=== PATIENT | female | born 1950 | race Caucasian/White ===

== ENCOUNTER → 2020-01-29 | Outpatient (CLI) | payer MEDICARE, SELFPAY ==
--- NOTE | 2020-01-29 15:40 | MRI_ITS ---
STUDY: MRI LEFT KNEE REASON FOR EXAM: Female, 69 years old. Pain. Strain. TECHNIQUE: Standardized fat and water weighted pulse sequences were obtained in all 3 orthogonal planes. COMPARISON: None. FINDINGS: Medial meniscus tear of the posterior horn, series 4 images through . Normal hyaline cartilage of the medial femorotibial compartment. There is reactive marrow edema of the medial tibial plateau. There is a partial sprain of the MCL with interstitial and periligamentous edema. Normal distal semimembranosus, gracilis and semitendinosus tendons. Normal lateral meniscus. Normal hyaline cartilage of the lateral femorotibial compartment. Normal lateral femoral condyle and tibial plateau. Normal proximal tibiofibular articulation. Normal lateral collateral (fibular) ligament. Normal popliteus tendon. Normal biceps femoris tendon. Normal anterior cruciate ligament (ACL). Normal posterior cruciate ligament (PCL). There is arthrosis of the patellofemoral articulation. There is diffuse, greater than 50% thickness articular cartilage loss of the patellofemoral compartment. Normal medial and lateral patellar retinaculum. Normal quadriceps tendon. Normal patellar tendon. Normal Hoffa''s fat pad. There is a moderate volume joint effusion. The soft tissues are unremarkable. The otherwise visualized osseous structures are unremarkable. MRI/Lower Ext Joint Only (Routine) IMPRESSION: Medial meniscus tear. Medial collateral ligament sprain. Bone bruise or stress injury of the medial tibial plateau. Patellofemoral degenerative change. Joint effusion. Electronically Signed: Sean Newton MD at 17:52 EDT , Service support ,
== END | disposition home or self-care (01) ==
LOC: MRI 15:36
PROVIDERS: PCP Internal Medicine; Referring Provider Physician Assistant; Visit Provider Physician Assistant
DX: S83.8X2A Sprain of other specified parts of left knee, initial encounter (principal); M17.11 Unilateral primary osteoarthritis, right knee
CPT/HCPCS: 73721

== ENCOUNTER → 2020-02-23 | Outpatient (CLI) | payer MEDICARE, SELFPAY ==
[2020-02-23 15:14] LABS: AST(SGOT) 26 U/L (15-37); Alanine Aminotransfer ALT/SGPT 54 U/L (13-56); Albumin, Serum 3.8 g/dL (3.2-5.0); Alkaline Phosphatase 105 U/L (45-117); Globulin 3.2 g/dL (2.2-4.2)
== END | disposition home or self-care (01) ==
LOC: LAB 14:05
PROVIDERS: PCP Family Medicine; Referring Provider Podiatrist Foot & Ankle Surgery; Visit Provider Podiatrist Foot & Ankle Surgery
DX: B35.1 Tinea unguium (principal)
CPT/HCPCS: 36415; 80076

== ENCOUNTER 2020-11-09 20:08 | Emergency (ER) | payer MEDICARE, OTHER, SELFPAY ==
[2020-11-09 20:09] VITALS: BP 140/79; PULSE 77; RESP 16; TEMP 36; O2SAT 99; BMI 23.1
--- NOTE | 2020-11-09 20:35 | ED.DCSUM_ITS ---
- ER Visit Summary Date of Service: 11/09/20 Chief Complaint: [Painful lesions to back] History of Present Illness: The patient is a 70 F [C department today with complaint of 2 lesions to the right lower back that she noticed few hours ago. Patient states that she was sitting in her office working when she felt like she needed to stretch her back and felt a soreness. Patient's looked at her skin and noted these lesions. Patient became concerned that these may have been spider bites and presents to the ER for evaluation. Patient has not had shingles before and she states that she does get the shingles vaccine. Patient denies recent illness such as fever or cough or COVID-19 exposures.] Physical Examination: [HEENT-PERRLA, EOMI. Cranial nerves II through XII grossly intact. TMs clear. Mucous membranes moist. No adenopathy. Cardiovascular-regular rate and rhythm without murmur or ectopy Lungs-clear to auscultation, chest wall stable without crepitus or subcu emphysema Abdomen-normoactive bowel sounds, soft, nontender, no rebound or rigidity, no peritoneal signs. Back exam-patient does have two 1 cm lesions approximately 5 cm apart that are slightly raised and erythematous with central excoriation noted. No vesicles noted. Areas are minimally tender to palpation. Extremities-intact ?4, normal range of motion, normal pulses, atraumatic] Test Results: [None indicated] Emergency Department Course and Treatment: [Discussed with patient that etiology of these lesions is unclear as I suspect it could be insect bites versus early start of shingles. I do not feel any antibiotics are indicated at this time she is in agreement. I recommended Benadryl for itching. Patient will follow up with her primary care physician in 3 to 5 days for repeat exam.] Treatment Plan: [To follow-up with primary care physician in 3 to 5 days. Patient to return if increased redness, swelling, pain, or condition should worsen anyway.] Disposition: [Discharged home in stable condition] Impression: [Insect bites to back] This note was generated with [employer] dictation software. It may contain incorrect words, spelling, and punctuation that were not noted in review of the chart prior to signing ED Disposition - Plan for ED Patient: Referrals: Charles Multani MD [Primary Care Provider] -
--- NOTE | 2020-11-09 20:38 | ED.DEP ---
ED Disposition - Plan for ED Patient: Instructions: ED Insect Sting, Local Reaction Referrals: Charles Multani MD [Primary Care Provider] - 3-5 Days
== END 2020-11-09 21:09 | disposition home or self-care (01) ==
LOC: ED 20:59
PROVIDERS: Emergency Provider Emergency Medicine; PCP Family Medicine
DX: S30.860A Insect bite (nonvenomous) of lower back and pelvis, initial encounter (principal); W57.XXXA Bitten or stung by nonvenomous insect and other nonvenomous arthropods, initial encounter; Y93.89 Activity, other specified; Y92.008 Other place in unspecified non-institutional (private) residence as the place of occurrence of the external cause; Y99.8 Other external cause status
CPT/HCPCS: 99282

== ENCOUNTER 2020-12-21 21:13 | Outpatient (RCR) | payer MEDICARE, OTHER, SELFPAY ==
[2020-12-21] MEDS: COVID-19 VACC, MRNA(PFIZER)/PF 30 MCG/0.3 ML SYRINGE IM (16:38)
[2021-01-11] MEDS: COVID-19 VACC, MRNA(PFIZER)/PF 30 MCG/0.3 ML SYRINGE IM (14:56)
== END 2021-03-22 23:59 ==
LOC: IMMUN 21:13
PROVIDERS: PCP Family Medicine; Visit Provider Family Medicine
DX: Z23 Encounter for immunization (principal)
CPT/HCPCS: 0001A; 0002A; 91300

== ENCOUNTER → 2021-03-02 13:14 | Outpatient (CLI) | payer MEDICARE, OTHER, SELFPAY ==
--- NOTE | 2021-03-02 13:19 | EKG12_ITS ---
Test Reason : PRE-OP Blood Pressure : / mmHG Vent. Rate : 079 BPM Atrial Rate : 079 BPM P-R Int : 186 ms QRS Dur : 078 ms QT Int : 396 ms P-R-T Axes : 053 -39 024 degrees QTc Int : 454 ms Normal sinus rhythm Left axis deviation Inferior infarct , age undetermined Poor R wave progression Abnormal ECG Confirmed by RICHARD BETANCOURT, REGINO ([id number]), newspaper managing editor THU LAIRD ([id number]) on 03/04/2021 11:06:09 AM Referred By: JENNIFER KNAPP Confirmed By:REGINO RAMOS MD
[2021-03-02 14:07] LABS: Hematocrit 40.9 % (37-47); Hemoglobin 13.7 g/dL (12.0-15.0); Mean Corp Hgb Conc 33.5 g/dL (32-36); Mean Corpuscular Hgb 29.9 pg (27.0-32.0); Mean Corpuscular Volume 89.3 fL (81-99); Mean Platelet Vol. 9.2 fl (6.2-12.0); Platelet Count 226 K/mm3 (150-450); RBC Distribution Width CV 11.9 % (11.6-14.6); RBC Distribution Width SD 38.5 fl (35.1-43.9); Red Blood Count 4.58 M/mm3 (4.2-5.4)
[2021-03-02 14:38] LABS: ALB/GLOB Ratio 1.3 RATIO (0.9-2.4); AST(SGOT) 20 U/L (15-37); Alanine Aminotransfer ALT/SGPT 31 U/L (13-56); Albumin, Serum 3.9 g/dL (3.2-5.0); Alkaline Phosphatase 103 U/L (45-117); Anion Gap 5 (5-15); BUN 24 mg/dL (7-18); BUN/Creat Ratio 29.5 RATIO (10-20); Calcium,Total 9.6 mg/dL (8.5-10.1); Chloride 108 mmol/L (98-107); Creatinine, Serum 0.81 mg/dL (0.55-1.02); EST Glomerular Filtration Rate 74 mL/min (>60); Est Glom Filt Rate - Afr Amer 90 mL/min (>60); Glucose 94 mg/dL (74-106); Potassium 4.4 mmol/L (3.5-5.1); Protein, Total 6.9 g/dL (6.4-8.2); Sodium Level 141 mmol/L (136-145)
== END ==
PROVIDERS: PCP Family Medicine
DX: Z01.812 Encounter for preprocedural laboratory examination (principal)
CPT/HCPCS: 36415; 80053; 85027; 93005

== ENCOUNTER 2023-06-29 06:01 | Day surgery (SDC) | payer MEDICARE, OTHER, SELFPAY ==
[2023-06-29 06:26] VITALS: BP 119/84; PULSE 69; RESP 16; TEMP 36.1; O2SAT 100; BMI 27.8
[2023-06-29] MEDS: Lactated Ringers 1,000 ML 15 ML IV (06:29)
--- NOTE | 2023-06-29 07:19 | PCM.HP.BLA ---
History and Physical Date of Admission: 06/29/23 Pt is examined and there are no changes to exam and evaluation of 06/21/23. The procedure was reviewed with the patient including informed consent with her present. She is marked in the pre-op holding area. Assessment & Plan Assessment/Plan (1) Vision decreased: (2) Dermatochalasis of both eyelids: PLAN: Plan Pt for upper blepharoplasty.
[2023-06-29] MEDS: Erythromycin Ophthalmic (NSY) 1 GM OPTH.TUBE 1 APPLIC OPHTHALMIC (08:05)
[2023-06-29] MEDS: Epinephrine (1 mg/ml) 1 MG/ML VIAL ×3 (08:13→08:43)
[2023-06-29] MEDS: Lidocaine 1% /Epi 1:100 (20ml) 20 ML Vial (09:00)
--- NOTE | 2023-06-29 09:19 | DCINST_ITS ---
Discharge Instructions Diet Discharge Diet: No restrictions Activity Lifting Restrictions: No Lifting or exersion Additional Activity Instructions:: Keep your back elevated (recliner position) when resting. Dressing / Incision Additional Dressing/Incision Instructions:: Maintain cold compresses for the remainder of the day as much as possible today. Follow the instructions given in the office. Follow Up Care Please Follow Up With: Lydia Resendiz MD When: As scheduled Test Results: Test results from this visit will be discussed in further detail at your follow- up appointment, if applicable. Discharge Plan Admission Attending Provider: Lydia Resendiz Primary Care Provider: Charles Multani Discharge Orders/Prescriptions Prescriptions: No Action gabapentin 100 mg capsule 100 mg PO DAILY baclofen 10 mg tablet 10 mg PO QHS glucosamine-chondroitin [Osteo Bi-Flex] 250-200 mg tablet 2 tab PO DAILY Rx Instructions: give after food/meal Zyrtec 10 mg capsule 10 mg PO DAILY PRN (Reason: allergy symptoms) hydroxycut 1 tab PO 1XD Patient Comments: weight loss, calorie burn will red 1 tab PO 1XD biotine forte 1 tab PO 2XD Dynamic Brain PO 1XD Nuvomed Sleep tight 1 tab PO HS erythromycin 5 mg/gram (0.5 %) ointment 1 applic ophthalmic (eye) DAILY Qty: 3.5 0RF Rx Instructions: Instill in eyes at night-time. Apply to incisions 1x a day. multivitamin [Daily Multiple] 1 EACH tablet 1 ea PO DAILY lansoprazole [Prevacid] 15 MG capsule 15 mg PO DAILY [id number] [krill oil] 1 EACH capsule 1 ea PO DAILY albuterol sulfate [Ventolin HFA] 1 INHALER inhaler 1 - 2 puff inhalation Q4H PRN PRN (Reason: Sob &/Or Wheezing) Referrals / Follow Up: Charles Multani MD [Primary Care Provider] - Disposition Disposition (needs filled in before D/C Order can be placed): Home, Self Care
[2023-06-29 09:24] VITALS: BP 119/84; BP 137/82; PULSE 66; RESP 16; TEMP 36.3; O2SAT 100
--- NOTE | 2023-06-29 09:27 | PCM.OPRPT ---
Problems Associated Problem List Diagnoses (1) Vision decreased: (2) Dermatochalasis of both eyelids: Report of Operation Date of Procedure: 06/29/23 Pre-Operative Diagnosis: Bilateral upper eyelid dermatochalasis, vision decreased Post-Operative Diagnosis: Same Surgery/Procedure Performed:: Bilateral upper blepharoplasty Surgeon: Lydia Resendiz Type of Anesthesia: General Drains: none Estimated Blood Loss (mL): minimal Description of Procedure: The patient was brought to the operating room and placed under general anesthesia in the supine position. Care is taken to pad all pressure points, apply a warming blanket, and sequential compression stockings. The face is prepped and draped in the usual sterile fashion. Tetracaine drops were placed in the eyes and corneal manuel with lubrication are placed bilaterally. The patient had been marked in the preop holding area prior to surgery. We initially began with making the incisions along the designated lines. A full-thickness skin excision of this tissue was then performed. Hemostasis is controlled with bipolar cautery. If thin sliver of orbicularis oculi is then taken and meticulous hemostasis again assured with bipolar cautery. Following this, the incision is tacked together with fast-absorbing gut suture. Cool compresses were placed on the eye and we directed our attention to the opposite side where the identical procedure was performed. Following this, a 5-0 Prolene suture was used to approximate skin edges in a subcuticular fashion and the sutures carried over to the opposite side. The suture ends are anchored in place with Mastisol and Steri-Strips. The corneal manuel are then removed. Cool compresses have been maintained on the eyes throughout the procedure. Erythromycin ophthalmic ointment is placed on the incision. Cool compresses are replaced. She was taken to the recovery room in an awakening in stable condition. Needle and sponge counts are correct. Complications none Admit VTE Documentation VTE Mechan Device Prophylaxis: SCD's
[2023-06-29 09:30] VITALS: BP 119/84; BP 135/79; PULSE 66; RESP 16; O2SAT 100
[2023-06-29 09:45] VITALS: BP 119/84; BP 149/91; PULSE 65; RESP 16; O2SAT 99
[2023-06-29 09:58] VITALS: BP 119/84; BP 155/90; PULSE 65; RESP 16; TEMP 37.1; O2SAT 100
[2023-06-29 10:38] VITALS: BP 119/84
== END 2023-06-29 11:30 | disposition home or self-care (01) ==
LOC: SDC 06:01 → AC 06:02
PROVIDERS: PCP Family Medicine; Referring Provider Plastic Surgery; Visit Provider Plastic Surgery
PROC: (CPT 15823; principal; 2023-06-29 07:20)
DX: H02.831 Dermatochalasis of right upper eyelid (principal); H02.834 Dermatochalasis of left upper eyelid; H54.7 Unspecified visual loss; K21.9 Gastro-esophageal reflux disease without esophagitis; Z78.0 Asymptomatic menopausal state; Z79.899 Other long term (current) drug therapy
CPT/HCPCS: 15823; 00103; J7120; J2405

== ENCOUNTER 2024-06-20 20:04 | Emergency (ER) | payer MEDICARE, OTHER, SELFPAY ==
[2024-06-20 20:05] VITALS: BP 155/90; PULSE 61; RESP 18; TEMP 36.6; O2SAT 100; BMI 29.1
[2024-06-20 20:39] LABS: Absolute Lymphocyte Count 1.71 X10^3/uL (0.83-4.51); Absolute Neutrophil Count 11.4 X10^3/uL (2.0-7.7); Basophil# 0.04 X10^3/uL; Basophil% 0.3 % (0-1); Eosinophil# 0.02 X10^3/uL; Eosinophils% 0.1 % (0-5); Hematocrit 42.1 % (37-47); Hemoglobin 14.3 g/dL (12.0-15.0); Lymphocyte # 1.71 X10^3/ul (0.83-4.51); Lymphocyte % 12.5 % (19-41); Mean Corpuscular Hgb 29.6 pg (27.0-32.0); Mean Corpuscular Volume 87.2 fL (81-99); Mean Platelet Vol. 9.4 fl (6.2-12.0); Monocyte# 0.51 X10^3/uL; Monocyte% 3.7 % (0-10); NRBC Flagged by Analyzer 0 % (0-5); Neutrophil # 11.36 X10^3/uL (2.7-7.7); Neutrophil % 82.9 % (47-70); Platelet Count 275 K/mm3 (150-450); RBC Distribution Width CV 11.7 % (11.6-14.6); RBC Distribution Width SD 37.4 fl (35.1-43.9); Red Blood Count 4.83 M/mm3 (4.2-5.4); White Blood Count 13.7 K/mm3 (4.4-11.0)
--- NOTE | 2024-06-20 20:41 | CT_ITS ---
STUDY: CT ABDOMEN AND PELVIS WITH CONTRAST REASON FOR EXAM: Female, 74 years old. LLQ abd pain, vomiting RADIATION DOSAGE (If Supplied By Facility): CTDIvol = ( 12.05 ) mGy, DLP = ( 643.98 ) mGycm TECHNIQUE: Transaxial images were obtained from the dome of the diaphragm to the symphysis pubis without oral contrast. IV 100mL Isovue-370 was administered. Sagittal and coronal images were reconstructed. Individualized dose optimization techniques were used for this CT. COMPARISON: None. FINDINGS: The visualized lung bases are unremarkable. The visualized portions of the heart are within normal limits. Normal liver. Normal gallbladder and extrahepatic biliary system. Normal spleen. Normal pancreas. Normal bilateral adrenal glands. Normal right kidney. Abnormal left kidney showing decreased enhancement and mild hydronephrosis related to a 5 mm left UPJ stone seen on coronal image 47. Normal visualized stomach. Normal small intestine. Normal colon. The appendix is visualized and appears normal. Normal abdominal aorta. Normal inferior vena cava. Normal retroperitoneum. Normal urinary bladder. There is atrophy of the uterus. Normal abdominal wall. Normal osseous structures. CT/Abdomen/Pelvis W IV Cont ONLY IMPRESSION: Obstruction of the left kidney and collecting system from a 5 mm left UPJ stone. Electronically Signed: Jamarcus Reese MD at 21:43 EDT ,
[2024-06-20 20:54] LABS: Mucous, Urine 0 SEEN /hpf (<or=2+)
[2024-06-20] MEDS: 0.9% Normal Saline (1000mL) 1,000 ML 999 ML IV (20:56)
[2024-06-20] MEDS: Ondansetron 4 MG/2 ML Vial IV (20:56)
[2024-06-20] MEDS: Morphine 4 MG/ML Syringe IV ×2 (20:56→21:34)
[2024-06-20 20:59] LABS: Color, Urine Yellow (Yellow); Glucose, Dipstick Normal (Normal); Ketone-Dipstick 50 mg/dl (Negative); Leukocyte Esterase-Dipstick 500 /ul (Negative); Nitrite-Dipstick Negative (Negative); Occult Blood-Urine 250 /ul (Negative); Protein-Dipstick 30 mg/dl (Negative); Specific Gravity, Urine 1.015 (1.002-1.030); Urine Bilirubin Dipstick Negative (Negative); Urine Clarity Cloudy (Clear); Urine Urobilinogen Normal (Normal)
[2024-06-20 21:04] LABS: ALB/GLOB Ratio 1.1 RATIO (0.9-2.4); AST(SGOT) 28 U/L (15-37); Alanine Aminotransfer ALT/SGPT 44 U/L (13-56); Albumin, Serum 3.9 g/dL (3.2-5.0); Alkaline Phosphatase 127 U/L (45-117); Anion Gap 11 (5-15); BUN 16 mg/dL (7-18); BUN/Creat Ratio 13.7 RATIO (10-20); Chloride 107 mmol/L (98-107); Creatinine, Serum 1.17 mg/dL (0.55-1.02); EST Glomerular Filtration Rate 48 mL/min (>60); Est Glom Filt Rate - Afr Amer 58 mL/min (>60); Estimated Creatinine Clearance 38.86 ml/min; Globulin 3.7 g/dL (2.2-4.2); Glucose 150 mg/dL (74-106); Lipase 33 U/L (13-75); Potassium 3.6 mmol/L (3.5-5.1); Protein, Total 7.6 g/dL (6.4-8.2); Sodium Level 140 mmol/L (136-145)
[2024-06-20 21:06] LABS: Calcium Oxalate Crystals Ur 1+ /hpf (<or=2+)
--- NOTE | 2024-06-20 21:06 | EX.ED.DYSGE1 ---
HPI History of Present Illness Chief Complaint: Nausea/Vomiting/Diarrhea Informant: patient Narrative Narrative: Patient is a 74-year-old female with no significant past medical history presenting with sudden onset of abdominal pain, nausea, vomiting and mild diarrhea. She states around 530 this afternoon she started having crampy abdominal pain. She then developed multiple episodes of nausea and vomiting. Denies any black or blood in her vomit. She also had an episode of diarrhea earlier this afternoon. As she plaint of a lot of pain especially in her left lower abdomen. Her started having some cramping, nausea and vomiting today as well but not nearly as severe. She denies eating any new foods that could have triggered this. No fevers reported. No chest pain or difficulty breathing. Not complaining urinary symptoms. No other complaints or concerns at this time. Does have a history of oophorectomy and . [facility] Medical History Wears hearing aid Post-menopausal GERD (gastroesophageal reflux disease) Non-smoker History of stress test (~06/25/23) Hearing problem Arthritis Multiple allergies Home Medications ?Medication ?Instructions ?Recorded ?Last Taken ?Type krill 1 ea PO DAILY 09/07/15 09/06/15 History [id number] 300 1 EACH mg-90 mg-24 mg-50 mg capsule (krill oil) lansoprazole 15 mg capsule,delayed 15 mg PO DAILY 09/07/15 09/08/15 08:00 History release (Prevacid) multivitamin (Daily Multiple 1 ea PO DAILY 09/07/15 Unknown History tablet) biotine forte 1 tab PO 2XD 04/04/23 Unknown History cetirizine 10 mg capsule (Zyrtec) 10 mg PO DAILY PRN allergy symptoms 04/04/23 Unknown History gabapentin 100 mg capsule 100 mg PO .3xwk 04/04/23 Unknown History hydroxycut 1 tab PO 1XD 04/04/23 Unknown History ondansetron 4 mg disintegrating 4 mg PO Q8H PRN PRN Nausea #20 tabs 06/20/24 Unknown Rx tablet oxycodone 5 mg tablet 5 mg PO Q6H PRN pain 3 days #12 06/20/24 Unknown Rx tabs tamsulosin 0.4 mg capsule 0.4 mg PO DAILY #7 CAPSULES 06/20/24 Unknown Rx Allergy/AdvReac Type Severity Reaction Status Date / Time No Known Allergies Allergy Verified 06/20/24 20:18 Family History Other Cancer Colon cancer Ovarian cancer Surgical History H/O blepharoplasty History of abdominoplasty History of toe surgery No pertinent past surgical history Social History Smoking Status: Never smoker alcohol intake: current substance use type: does not use additional social history: Does Take Aspirin As Needed Does Take Ibuprofen As Needed ROS ROS ED Constitutional Constitutional ED: Denies chills or fever(s) Cardiovascular Cardiovascular: Denies chest pain Gastrointestinal Gastrointestinal: Reports abdominal pain, diarrhea, nausea and vomiting Genitourinary Genitourinary ED: Denies dysuria or hematuria Musculoskeletal Musculoskeletal: Denies arthralgias or myalgias Integumentary Denies rash Neurologic Neurologic: Denies weakness Hematologic/Lymphatic Hematologic/Lymphatic: Denies easy bleeding or easy bruising EXAM Physical Exam Const Vital Signs: 06/20/24 20:05 06/20/24 21:46 Temperature 97.9 F 97.4 F L Temperature Source Temporal Temporal Pulse Rate 61 60 Respiratory Rate 18 18 Blood Pressure 155/90 H 148/86 H Blood Pressure Mean 111 106 Pulse Ox 100 97 Oxygen Delivery Method Room Air Positive well nourished and well developed General Appearance ED: well developed and NAD HEENT Reports moist mucous membranes Neck supple Chest Wall inspection of chest normal and palpation of chest normal Resp normal respiratory effort and clear to auscultation bilaterally Cardio regular rate and regular rhythm GI normal to inspection, nondistended, normoactive bowel sounds Palpation: soft and tender LLQ; Negative for guarding MDM MDM MDM Narrative Medical decision making narrative: Patient evaluated for rather sudden onset of abdominal pain, nausea and vomiting. The pain is now localized to her left lower quadrant. Is not reproducible on exam. Patient is in mild distress secondary to pain on my initial evaluation. Pain is slightly out of proportion to exam tilactase added on in addition to routine abdominal labs and CT the abdomen pelvis. Patient was given IV morphine and Zofran as well as IV fluids in the emergency room. Patient does require redosed with morphine. Lab work does show leukocytosis, mild elevation of creatinine of 1.17 (baseline appears to be 0.8-0.9) and elevated lactate of 3.3. Urinalysis shows greater than 100 red blood cells with 25-50 white blood cells, 1+ crystal and 1+ bacteria. Suspect this is more reactive but will send for culture. I do not think this is consistent with an acute infection. I suspect the other laboratory abnormalities are more associated with acute dehydration/reactive from her vomiting and acute pain. On repeat evaluation patient's pain is significantly improved. She is quite well-appearing now. Discussed options of admission for further pain control versus discharge home and attempted pass at home. I did offer the patient admission however at this time patient would like to try to treat this as an outpatient basis. Patient is given referral for follow-up with urology. Is given prescription for Flomax, oxycodone and Zofran. Is encouraged to push fluids. Is given return precaution. Patient and agreeable plan of care. Discussed at length with patient's expectant management for kidney stone as well. History & Record Review Additional record(s) reviewed:: Prior labs Lab Data Attestation: I reviewed the patient's lab results. Labs: Laboratory Results - last 24 hr 06/20/24 06/20/24 20:18 20:47 WBC 13.7 H RBC 4.83 Hgb 14.3 Hct 42.1 MCV 87.2 MCH 29.6 MCHC 34.0 RDW Std Deviation 37.4 RDW Coeff of Paul 11.7 Plt Count 275 MPV 9.4 Immature Gran % (Auto) 0.500 Neut % (Auto) 82.9 H Lymph % (Auto) 12.5 L Tift % (Auto) 3.7 Eos % (Auto) 0.1 Baso % (Auto) 0.3 Absolute Neuts (auto) 11.4 H Absolute Lymphs (auto) 1.71 Nucleated RBC % 0 Sodium 140 Potassium 3.6 Chloride 107 Carbon Dioxide 22.0 Anion Gap 11 BUN 16 Creatinine 1.17 H Estim Creat Clear Calc 38.86 Est GFR (MDRD) Af Amer 58 L Est GFR (MDRD) Non-Af 48 L BUN/Creatinine Ratio 13.7 Glucose 150 H Lactic Acid 3.3 H* Calcium 10.0 Total Bilirubin 0.70 AST 28 ALT 44 Alkaline Phosphatase 127 H Total Protein 7.6 Albumin 3.9 Globulin 3.7 Albumin/Globulin Ratio 1.1 Lipase 33 Urine Color Yellow Urine Clarity Cloudy Urine pH 7.0 Ur Specific [place] 1.015 Urine Protein 30 H Urine Glucose (UA) Normal Urine Ketones 50 H Urine Occult Blood 250 H Urine Nitrite Negative Urine Bilirubin Negative Urine Urobilinogen Normal Ur Leukocyte Esterase 500 H Urine RBC > 100 SEEN Urine WBC 25-50 SEEN Ur Squamous Epith Cells 5-10 SEEN Ur Transition Epith Cell 0-5 SEEN Calcium Oxalate Crystal 1+ Urine Bacteria 1+ Urine Mucus 0 SEEN Radiography Diagnostic Testing: Clinical Impression(s) from Imaging Studies Abdomen/Pelvis CT 06/20/24 20:41 IMPRESSION: Obstruction of the left kidney and collecting system from a 5 mm left UPJ stone. Electronically Signed: Jamarcus Reese MD at 21:43 EDT Reading Location ID and State: [address] [place] [address] , Service support , Discharge Plan Triage Chief Complaint: Nausea/Vomiting/Diarrhea ED Provider: Zeinab Kirkpatrick Dx/Rx/DC Orders Clinical Impression: Hydroureter, left, Kidney stone on left side Instructions: ED Kidney Stone with Pain Prescriptions: New oxycodone 5 mg tablet 5 mg PO Q6H PRN (Reason: pain) 3 Days Qty: 12 0RF ondansetron 4 mg tablet,disintegrating 4 mg PO Q8H PRN PRN (Reason: Nausea) Qty: 20 0RF tamsulosin 0.4 mg capsule 0.4 mg PO DAILY Qty: 7 0RF No Action gabapentin 100 mg capsule 100 mg PO .3xwk Zyrtec 10 mg capsule 10 mg PO DAILY PRN (Reason: allergy symptoms) hydroxycut 1 tab PO 1XD Patient Comments: weight loss, calorie burn biotine forte 1 tab PO 2XD multivitamin [Daily Multiple] 1 EACH tablet 1 ea PO DAILY lansoprazole [Prevacid] 15 MG capsule 15 mg PO DAILY [id number] [krill oil] 1 EACH capsule 1 ea PO DAILY Primary Care Provider: Charles Multani Referrals: Mishel Real MD [Med Staff - Active Staff] - 3-5 Days if not improving Charles Multani MD [Primary Care Provider] - Activity Restrictions/Additional Instructions: You have a 5 mm kidney stone on the left side that started to pass. This is the cause of your pain. You may also take up to 1000 mg of Tylenol every 8 hours for pain. You have some very mild renal insufficiency and her labs today so I would try to use anti-inflammatory such as ibuprofen, Aleve or Advil sparingly. You may take as needed for breakthrough pain however. The stone should pass on its own however if you cannot tolerate the symptoms, I have worsening symptoms or develop a fever please return to the emergency room and we can reevaluate you and consider admission at that time. Make sure you are drinking plenty of fluids. Print Language: Spanish Disposition Disposition: Home, Self Care
[2024-06-20 21:16] LABS: Red Blood Cells-Urine > 100 SEEN /hpf (0-5); Squamous Epithelial Cells - UA 5-10 SEEN /hpf (5-10); White Blood Cells 25-50 SEEN /hpf (0-5)
[2024-06-20 21:17] LABS: Bacteria 1+ /hpf (None Seen)
[2024-06-20 21:19] LABS: Transitional Epithelial - Ur 0-5 SEEN /hpf (0-5)
[2024-06-20 21:23] LABS: Lactic Acid 3.3 mmol/L (0.4-1.9)
[2024-06-20 21:46] VITALS: BP 148/86; PULSE 60; RESP 18; TEMP 36.3; O2SAT 97
[2024-06-20 23:00] VITALS: BP 122/84; PULSE 65; RESP 16
[2024-06-20 23:54] VITALS: BP 122/84; PULSE 65; RESP 16; TEMP 36.4; O2SAT 97
[2024-06-21 00:53] LABS: Reflex Lactate? Y
== END 2024-06-20 23:55 | disposition home or self-care (01) ==
PROVIDERS: Emergency Provider Emergency Medicine; PCP Family Medicine; Visit Provider Emergency Medicine
DX: N13.4 Hydroureter (principal); R11.2 Nausea with vomiting, unspecified; R19.7 Diarrhea, unspecified; N20.0 Calculus of kidney; K21.9 Gastro-esophageal reflux disease without esophagitis
CPT/HCPCS: 74177; 80053; 81001; 83605; 83690; 85025; 87086; 96361; 96374; 96375; 99282; J7030; Q9967; A4216; J2405